=== PATIENT | female | born 1965 | race Two or more races ===

== ENCOUNTER 2020-04-26 11:10 | Day surgery (SDC) | payer OTHER | END 2020-04-26 17:15 | disposition home or self-care (01) | LOC: AMB-ENDOS 11:10 | PROVIDERS: ATTEND Surgery | DX: K62.89 Other specified diseases of anus and rectum (principal); Z20.828 Contact with and (suspected) exposure to other viral communicable diseases ==

== ENCOUNTER 2021-08-20 23:04 | Emergency (ER) | payer OTHER ==
[~2021-08-20] VITALS: Ht 154.9 cm; Wt 68.0 kg
[2021-08-20] MEDS ORDERED: AVALIDE 300-121 EACH PO (23:13)
[2021-08-20] MEDS ORDERED: ZYRTEC10 M3 PO (23:13)
[2021-08-20] MEDS ORDERED: CARDURA1 MG PO (23:13)
[2021-08-20] MEDS ORDERED: TENORMIN100 M1 PO (23:13)
[2021-08-21] MEDS ORDERED: KETO10TA2 PO (01:55)
[2021-08-21] MEDS ORDERED: TAMS0.4C PO (01:55)
[2021-08-21] MEDS ORDERED: CIPROFLOXACIN500 MG PO (01:55)
== END 2021-08-21 02:04 | disposition home or self-care (01) ==
LOC: ER 23:04
DX: N20.1 Calculus of ureter (principal); N39.0 Urinary tract infection, site not specified; R10.32 Left lower quadrant pain; I10 Essential (primary) hypertension; Z88.8 Allergy status to other drugs, medicaments and biological substances; Z91.040 Latex allergy status; J90 Pleural effusion, not elsewhere classified